=== PATIENT | female | born 2005 | race Caucasian/White ===

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

== ENCOUNTER 2024-07-05 22:10 | Emergency (ER) | payer BC ==
[2024-07-05 23:00] LABS: BASOPHILS ABSOLUTE AUTO 0.04 K/uL (0.00-0.20); BASOPHILS PERCENT AUTO 0.5 % (0.0-1.0); EOSINOPHILS ABSOLUTE AUTO 0.09 K/uL (0.00-0.45); EOSINOPHILS PERCENT AUTO 1.1 % (0.0-6.0); HEMATOCRIT 39.8 % (37.0-47.0); HEMOGLOBIN 13.6 g/dL (12.0-16.0); IMMATURE GRAN ABSOLUTE AUTO 0.01 K/uL (0.00-0.05); IMMATURE GRAN PERCENT AUTO 0.1 % (0.0-0.4); LYMPHOCYTES PERCENT AUTO 42.1 % (24.0-44.0); MEAN CORPUSCULAR HEMOGLOBIN 30.1 pg (28.0-32.0); MEAN CORPUSCULAR HGB CONC 34.2 g/dL (32.0-36.0); MEAN CORPUSCULAR VOLUME 88.1 fL (83.0-99.0); MEAN PLATELET VOLUME 8.5 fL (9.4-12.3); MONOCYTES ABSOLUTE AUTO 0.65 K/uL (0.00-0.80); MONOCYTES PERCENT AUTO 8.3 % (0.0-8.0); NEUTROPHILS ABSOLUTE AUTO 3.74 K/uL (1.80-7.70); NEUTROPHILS PERCENT AUTO 47.9 % (41.0-71.0); PLATELET COUNT,PLT 268 K/uL (150-400); RED BLOOD CELL COUNT 4.52 M/uL (4.10-5.30); WHITE BLOOD CELL COUNT,WBC 7.83 K/uL (3.9-11.3)
[2024-07-05 23:20] LABS: CALCIUM 8.8 mg/dL (8.5-10.1); CARBON DIOXIDE,CO2 27.7 mmol/L (21.0-32.0); CREATININE 0.8 mg/dL (0.6-1.0); EST CRCL DRUG DOSING (CG) 96.06 mL/min; POTASSIUM,K 3.4 mmol/L (3.5-5.1)
== END 2024-07-05 23:54 | disposition home or self-care (01) ==
LOC: MW.ED 22:10
DX: R07.89 Other chest pain (principal); R07.81 Pleurodynia; R20.2 Paresthesia of skin; Z86.16 Personal history of COVID-19
CPT/HCPCS: 36415; 80048; 85025; 93005; 93010; 99283; 99285